=== PATIENT | female | born 1975 | race Hispanic/Latino ===

== ENCOUNTER → 2017-08-11 | Outpatient (CLI) | payer OTHER ==
[~2017-08-11] MED LIST: FLAXSEED PO; NAPR-1023 PO; PANT20TA12 PO; SENN-2 PO
== END | disposition home or self-care (01) ==
LOC: OIH 08:54
PROVIDERS: ATTEND Surgery
DX: K42.9 Umbilical hernia without obstruction or gangrene (principal); K43.9 Ventral hernia without obstruction or gangrene
CPT/HCPCS: 74176

== ENCOUNTER 2017-09-21 06:19 | Day surgery (SDC) | payer OTHER ==
[2017-09-15 15:21] LABS: BASOPHILS % (AUTO) 1.5 % (0.0-5.0); EOSINOPHILS % (AUTO) 3.1 % (0.0-8.0); HEMATOCRIT 36.5 % (36-48); LYMPHOCYTES % (AUTO) 33.2 % (21.0-51.0); MEAN CORPUSCULAR HEMOGLOBIN 29.3 pg (27.0-33.0); MEAN CORPUSCULAR HGB CONC 33.8 g/dL (32.0-36.0); MEAN CORPUSCULAR VOLUME 86.7 fL (79-99); MONOCYTES % (AUTO) 5.9 % (3.0-13.0); NEUTROPHILS % (AUTO) 56.3 % (40.0-77.0); PLATELET COUNT (AUTO) 322 K/uL (130-400); RED BLOOD CELL COUNT(AUTO) 4.22 MIL/uL (4.00-5.50); RED CELL DISTRIBUTION WIDTH 13.5 % (11.0-15.5); WHITE BLOOD COUNT (AUTO) 5.7 K/uL (4.8-10.8)
[2017-09-15 15:28] LABS: APPEARANCE,URINE Clear (CLEAR); BILIRUBIN,URINE Negative (NEGATIVE); COLOR,URINE Yellow (YELLOW); GLUCOSE, URINE (UA) Negative (NEGATIVE); KETONES,URINE Negative (NEGATIVE); LEUKOCYTE ESTERASE ,URINE Negative (NEGATIVE); NITRATE,URINE Negative (NEGATIVE); OCCULT BLOOD,URINE Negative (NEGATIVE); PH,URINE 5.5 (5.0-8.0); PROTEIN,URINE Negative (NEGATIVE); UROBILINOGEN,URINE 0.2 mg/dL (0.2-1.0)
[2017-09-15 15:34] VITALS: BP 139/76
[2017-09-21] VITALS (13 sets, daily range): BP systolic 100–128; BP diastolic 56–81
[~2017-09-21] VITALS: Ht 161.3 cm; Wt 86.1 kg
[~2017-09-21 06:19] MED LIST changes: -FLAXSEED PO; -NAPR-1023 PO
[2017-09-21] MEDS ORDERED: LACTATED RINGERS 1000ML 1,000 ML IV ONE (06:39)
[2017-09-21] MEDS ORDERED: NAPR-1023 PO (07:14)
[2017-09-21] MEDS ORDERED: FLAXSEED PO (07:14)
[2017-09-21] MEDS ORDERED: FENTANYL CITRATE PF 50 MCG/1 ML 2ML VIAL ONE (07:55)
[2017-09-21] MEDS ORDERED: MIDAZOLAM HCL 1 MG/ML 2ML VIAL ONE (07:55)
[2017-09-21] MEDS ORDERED: PROPOFOL 10 MG/ML 20ML VIAL IV ONE ×2 (07:57→08:35)
[2017-09-21] MEDS ORDERED: HEPARIN SODIUM 1000UNIT/ML 10ML VIAL ONE (08:09)
[2017-09-21] MEDS ORDERED: SUCCINYLCHOLINE 200MG/10ML SYR ONE (08:15)
[2017-09-21] MEDS ORDERED: LIDOCAINE HCL 4% LTA SOL 4 ML VIAL ONE (08:15)
[2017-09-21] MEDS ORDERED: DEXAMETHASONE SOD PHOSPHATE 10MG/ML 1ML VIAL ONE (08:15)
[2017-09-21] MEDS ORDERED: LIDOCAINE HCL MPF 1% 5ML VIAL ONE (08:15)
[2017-09-21] MEDS ORDERED: LIDOCAINE 2%-EPI 1:200,000 20 ML VIAL IJ ONE (08:15)
[2017-09-21] MEDS ORDERED: LIDOCAINE HCL 2% JELLY 5 ML ONE (08:15)
[2017-09-21] MEDS ORDERED: ONDANSETRON HCL 4 MG/2 ML VIAL ONE (08:15)
[2017-09-21] MEDS ORDERED: MEPERIDINE-PF 25 MG/ML SYG ONE ×2 (08:52→09:05)
[2017-09-21] MEDS ORDERED: ACETAMINOPHEN-CODEINE 300/30MG TAB ONE (10:16)
== END 2017-09-21 10:38 | disposition home or self-care (01) ==
LOC: DAH 06:19
PROVIDERS: ATTEND Surgery
DX: K81.1 Chronic cholecystitis (principal); K82.8 Other specified diseases of gallbladder; Z98.890 Other specified postprocedural states; E66.9 Obesity, unspecified
CPT/HCPCS: 36415; 47562; 81003; 84703; 85025; 88304; A4450; C1769 ×4; J0330; J1100; J1644; J2175 ×2; J2250; J2405; J2704 ×2; J3010; J3490 ×2; J7030; J7120

== ENCOUNTER → 2018-11-02 | Outpatient (CLI) | payer OTHER ==
[~2018-11-02] MED LIST changes: +FLAXSEED PO; +LIDOCAINE HCL MPF 1% 5ML VIAL ONE; +NAPR-1023 PO; +PROPOFOL 10 MG/ML 20ML VIAL IV ONE
== END | disposition home or self-care (01) ==
LOC: RAH 11:05
PROVIDERS: ATTEND Internal Medicine Critical Care Medicine
DX: R05 Cough (principal); M47.814 Spondylosis without myelopathy or radiculopathy, thoracic region
CPT/HCPCS: 71046; J2704; J3490